=== PATIENT | male | born 1985 | race Caucasian/White ===

== ENCOUNTER 2017-06-06 19:54 | Emergency (ER) | payer SELFPAY ==
[2017-06-06] MEDS ORDERED: NS 1,000 ML IV ONE (20:11)
[2017-06-06] MEDS ORDERED: ONDANSETRON 4 MG/2 ML VIAL IVP ONE (20:11)
[2017-06-06] MEDS ORDERED: HYOSCYAMINE SULFATE 0.125 MG TAB PO ONE (20:11)
[2017-06-06] MEDS ORDERED: FAMOTIDINE 20 MG TAB PO ONE (20:11)
[2017-06-06] MEDS ORDERED: MAG HYDROX/AL HYDROX/SIMETH 30 ML UDCUP PO ONE (20:11)
[2017-06-06] MEDS ORDERED: LIDOCAINE 2% VISCOUS 15 ML UDCUP PO ONE (20:11)
--- NOTE | 2017-06-06 20:16 | EDPHY ---
H & P Smoking Status: Heavy smoker Time Seen by Provider: 06/06/17 20:13 HPI/ROS: HPI: Mr. Carlisle is a 32 yrs, male who presents with Chief Complaint: Abdominal pain Location: Epigastric Quality: sharp, Pain Duration: 1 day Signs and Symptoms: Positive nausea, no vomiting, positive diarrhea 2-3 times today, no hematemesis, no blood in stool, no urinary symptoms, no fever Timing: Constant Severity: Moderate Context: Patient is homeless presents today with 1 day history of epigastric sharp constant pain accompanied by diarrhea approximately 2-3 loose stools today. Had to get off transit bus in order to use the restroom. Denies any recent antibiotic. No history of abdominal surgeries. Denies alcohol use. Ate chili today around 5:00 p.m. yesterday had a heart attack from 04/29. These are typical foods for patient. Modifying Factors: No tldm-[id number] medications tried Comment: ROS: Eyes: No blurred vision Respiratory: No shortness of breath, no cough Cardiovascular: No chest pain Gastrointestinal: No nausea, no vomiting no diarrhea Genitourinary: No dysuria Extremities: No myalgias Neurologic: No weakness, no numbness Skin: No rashes Hematologic: No bruising, no bleeding MEDICAL/SURGICAL HISTORY: Does not have regular medical care. Denies any surgical history. (Dee Deng) Social History: Homeless. Heavy smoker. (Dee Deng) Physical Exam: CONSTITUTIONAL: Adult white male, very talkative, for personal hygiene and soiled clothing, awake and alert, no obvious distress HEENT: Atraumatic and normocephalic, PERRL, EOMI. Tympanic membranes clear. Oropharynx clear, poor dentition, halitosis, no exudate and moist pink mucosa. Airway patent. No lymphadenopathy. No meningismus. Cardiovascular: Normal S1/S2, regular rate, regular rhythm, without murmur rub or gallop. PULMONARY/CHEST: Symmetrical and nontender. Clear to auscultation bilaterally Good air movement. No accessory muscle usage. ABDOMEN: Soft, nondistended, mild epigastric tenderness to deep palpation, no rebound, no guarding, no peritoneal signs, no masses or organomegaly. No CVAT. Bowel sounds hyperactive x4 quadrants. EXTREMITIES: 2/2 pulses, no deformities, no clubbing, no cyanosis or edema. NEUROLOGICAL: no focal neuro deficits. GCS 15. SKIN: Warm and dry, no erythema. no rash. Good capillary refill. (Dee Deng) Constitutional: Initial Vital Signs Temperature (C) 36.8 C 06/06/17 19:57 Heart Rate 90 06/06/17 19:57 Respiratory Rate 18 06/06/17 19:57 Blood Pressure 128/91 H 06/06/17 19:57 O2 Sat (%) 97 06/06/17 19:57 O2 Delivery Mode Room Air Allergies/Adverse Reactions: No Known Allergies Allergy (Unverified 06/27/13 18:40) Home Medications: Medication Instructions Recorded Famotidine [Pepcid 20 MG (*)] 20 mg PO BID #14 tab 06/06/17 Medical Decision Making - Diagnostics Imaging Results: Imaging Impressions Abdomen CT 06/06/17 20:11 Impression: 1. Gastroparesis versus gastric outlet obstruction. No volvulus or mass. 2. Normal pancreas. No pancreatitis or localized intra-abdominal inflammatory process. Findings discussed with Emergency Department physician, Dr. Chato Spicer on 2016 at 2126 hours. ED Course/Re-evaluation: Urinalysis, labs, IV fluids, IV and oral medications, CT abdominal and pelvis scan Given IV fluids, GI cocktail, Pepcid with moderate relief No signs of lactic acidosis, acute kidney injury, electrolyte imbalance, pancreatitis, colitis, gastric outlet obstruction, colitis Mild leukocytosis noted. Afebrile. no systemic signs. 2124: Patient reexamined and abdominal pain resolved. Asking to use the restroom. Patient given Zofran take-home pack as well as prescription for Pepcid. advised Supportive care (Dee Deng) Differential Diagnosis: Abdominal pain including but not limited to appendicitis, cholecystitis, gastritis and urinary tract infection. (Dee Deng) Other Provider: PHYSICIAN DOCUMENTATION: The patient was evaluated and managed by the Physician Clinical Educator and myself. I have reviewed the chart and agree with the findings and plan of care as documented. In addition, I examined the patient myself at 2049. History confirmed as abdominal pain mostly epigastric for 2 days. Physical findings as follows: Some diffuse tenderness but no rebound or guarding, no peritoneal signs. Plan for labs to include LFTs and lipase, and CT scanning. 2134: On repeat exam patient is soft and nontender. He is up ambulatory to the bathroom. He feels better. Results discussed. I am the secondary supervising physician. (Chato Spicer) - Data Points Laboratory Results: Laboratory Results 06/06/17 20:15 06/06/17 20:15 06/06/17 06/06/17 06/06/17 20:15 20:15 20:15 WBC 12.19 10^3/uL H 10^3/uL (3.80-9.50) RBC 5.64 10^6/uL 10^6/uL (4.40-6.38) Hgb 17.2 g/dL g/dL (13.7-17.5) Hct 51.0 % % (40.0-51.0) MCV 90.4 fL fL (81.5-99.8) MCH 30.5 pg pg (27.9-34.1) MCHC 33.7 g/dL g/dL (32.4-36.7) RDW 13.2 % % (11.5-15.2) Plt Count 243 10^3/uL 10^3/uL (150-400) MPV 10.9 fL fL (8.7-11.7) Neut % (Auto) 66.3 % % (39.3-74.2) Lymph % (Auto) 23.9 % % (15.0-45.0) Lucas % (Auto) 6.6 % % (4.5-13.0) Eos % (Auto) 2.5 % % (0.6-7.6) Baso % (Auto) 0.2 % L % (0.3-1.7) Nucleat RBC Rel Count 0.0 % % (0.0-0.2) Absolute Neuts (auto) 8.07 10^3/uL H 10^3/uL (1.70-6.50) Absolute Lymphs (auto) 2.91 10^3/uL 10^3/uL (1.00-3.00) Absolute Monos (auto) 0.81 10^3/uL H 10^3/uL (0.30-0.80) Absolute Eos (auto) 0.31 10^3/uL 10^3/uL (0.03-0.40) Absolute Basos (auto) 0.03 10^3/uL 10^3/uL (0.02-0.10) Absolute Nucleated RBC 0.00 10^3/uL 10^3/uL (0-0.01) Immature Gran % 0.5 % % (0.0-1.1) Immature Gran # 0.06 10^3/uL 10^3/uL (0.00-0.10) ABG Lactic Acid 1.0 mmol/L mmol/L (0.5-1.6) Sodium 137 mEq/L mEq/L (134-144) Potassium 4.1 mEq/L mEq/L (3.5-5.2) Chloride 103 mEq/L mEq/L (97-110) Carbon Dioxide 22 mEq/l mEq/l (22-31) Anion Gap 12 mEq/L mEq/L (8-16) BUN 12 mg/dL mg/dL (7-23) Creatinine 1.0 mg/dL mg/dL (0.7-1.3) Estimated GFR > 60 Glucose 85 mg/dL mg/dL (70-100) Calcium 9.6 mg/dL mg/dL (8.5-10.4) Total Bilirubin 1.0 mg/dL mg/dL (0.1-1.4) Conjugated Bilirubin 0.4 mg/dL mg/dL (0.0-0.5) Unconjugated Bilirubin 0.6 mg/dL mg/dL (0.0-1.1) AST 34 IU/L IU/L (17-59) ALT 16 IU/L L IU/L (21-72) Alkaline Phosphatase 85 IU/L IU/L (38-126) Total Protein 7.0 g/dL g/dL (6.3-8.2) Albumin 4.2 g/dL g/dL (3.5-5.0) Lipase 74 IU/L IU/L (23-300) Ethyl Alcohol < 10 mg/dL mg/dL (0-10) Medications Given: Discontinued Medications Al Hydroxide/Mg Hydroxide (Maalox Susp) 30 ml PO ONCE ONE Stop: 06/06/17 20:12 Last Admin: 06/06/17 20:29 Dose: 30 ml Famotidine (Pepcid) 20 mg PO EDNOW ONE Stop: 06/06/17 20:12 Last Admin: 06/06/17 20:29 Dose: 20 mg Hyoscyamine Sulfate (Levsin, Hyomax-Sl) 0.25 mg PO ONCE ONE Stop: 06/06/17 20:12 Last Admin: 06/06/17 20:28 Dose: 0.25 mg Sodium Chloride (Ns) 1,000 mls @ 0 mls/hr IV EDNOW ONE; Wide Open PRN Reason: Protocol Stop: 06/06/17 20:12 Last Admin: 06/06/17 20:26 Dose: 1,000 mls Lidocaine (Lidocaine 2% Viscous) 15 ml PO ONCE ONE Stop: 06/06/17 20:12 Last Admin: 06/06/17 20:29 Dose: 15 ml Ondansetron HCl (Zofran) 4 mg IVP EDNOW ONE Stop: 06/06/17 20:12 Last Admin: 06/06/17 20:26 Dose: 4 mg Departure - Departure Disposition: Home, Routine, Self-Care Clinical Impression: Gastritis Qualifiers: Gastritis type: unspecified gastritis Chronicity: acute Gastritis bleeding: without bleeding Qualified Code(s): K29.00 - Acute gastritis without bleeding Abdominal pain Qualifiers: Abdominal location: generalized Qualified Code(s): R10.84 - Generalized abdominal pain Condition: Good Instructions: Ondansetron (By mouth), Gastritis (ED), Abdominal Pain (ED) Referrals: [facility],. [Clinic] - 2-3 days, if not improved Prescriptions: Famotidine [Pepcid 20 MG (*)] 20 mg PO BID #14 tab
[2017-06-06 20:26] LABS: % IMMATURE GRANULYOCYTES 0.5 % (0.0-1.1); ABSOLUTE IMMATURE GRANULOCYTES 0.06 10^3/uL (0.00-0.10); ADD DIFF? NO; ADD MORPH? NO; ADD SCAN? NO; ATYPICAL LYMPHOCYTE FLAG 0 (0-99); FRAGMENT RBC FLAG 0 (0-99); HEMOGLOBIN 17.2 g/dL (13.7-17.5); LEFT SHIFT FLG 0 (0-99); LIPEMIA HEMOLYSIS FLAG 80 (0-99); MEAN CELL HEMOGLOBIN 30.5 pg (27.9-34.1); MEAN CELL HEMOGLOBIN CONCENTR. 33.7 g/dL (32.4-36.7); MEAN CELL VOLUME 90.4 fL (81.5-99.8); MEAN PLATELET VOLUME 10.9 fL (8.7-11.7); PLATELET CLUMPS FLAG 10 (0-99); PLATELET COUNT 243 10^3/uL (150-400); RED BLOOD CELL COUNT 5.64 10^6/uL (4.40-6.38); RED CELL DISTRIBUTION WIDTH 13.2 % (11.5-15.2)
[2017-06-06] MEDS ORDERED: IOPAMIDOL (ISOVUE-300) 100 ML BTL ONE (20:46)
[2017-06-06 20:55] LABS: ALANINE AMINOTRANSFERASE 16 IU/L (21-72); ALBUMIN 4.2 g/dL (3.5-5.0); ALKALINE PHOSPHATASE 85 IU/L (38-126); ANION GAP 12 mEq/L (8-16); ASPARTATE AMINOTRANSFERASE 34 IU/L (17-59); BILIRUBIN-CONJUGATED 0.4 mg/dL (0.0-0.5); BILIRUBIN-UNCONJUGATED 0.6 mg/dL (0.0-1.1); CALCIUM 9.6 mg/dL (8.5-10.4); CARBON DIOXIDE 22 mEq/l (22-31); CHLORIDE 103 mEq/L (97-110); ETHANOL SERUM < 10 mg/dL (0-10); GLOMERULAR FILTRATION RATE > 60; GLUCOSE 85 mg/dL (70-100); POTASSIUM 4.1 mEq/L (3.5-5.2); SODIUM 137 mEq/L (134-144)
[2017-06-06] MEDS ORDERED: ONDANSETRON 4MG PREPACK#2 BTL TAKEHOME ONE (21:31)
[2017-06-06 21:45] LABS: COLOR YELLOW; LEUKOCYTE ESTERASE,URINE NEGATIVE (NEGATIVE); NITRITE,URINE NEGATIVE (NEGATIVE)
[2017-06-06 21:47] VITALS: BP 134/71; PULSE 80; RESP 16; TEMP 98.1; O2SAT 96
== END 2017-06-06 21:47 | disposition home or self-care (01) ==
DX: K29.00 Acute gastritis without bleeding (principal); F17.200 Nicotine dependence, unspecified, uncomplicated; E86.9 Volume depletion, unspecified
CPT/HCPCS: 96374; G0480; J2405; Q9967